=== PATIENT | female | born 1960 | race Caucasian/White ===

== ENCOUNTER 2019-03-04 19:06 | Emergency (ER) | payer OTHER ==
[~2019-03-04] VITALS: Ht 139.7 cm; Wt 57.2 kg
--- OUTSIDE RECORDS SUMMARY | 2019-03-04 19:09 | XMS REPORT | Clinical Summary ---
Author Author [facility] Organization [facility] Address Unknown Phone Unavailable Care Team Providers Care Rover Tender Name Role Phone Silverio Doss MD PCP Allergies Comments Active Allergy Reactions Severity Noted Date Penicillins Rash Low 03/02/2018 Sulfa (Sulfonamide Rash Low 06/08/2018 Antibiotics) Medications End Date Status Medication Sig Dispensed Refills Start Date Active insulin lispro (HumaLOG) Inject under 0 100 unit/mL injection the skin 3 (three) times a day before meals. Sliding scale Active liraglutide (VICTOZA Inject 1.2 mg 0 2-FUENTES SUBQ) under the skin daily. Active carvedilol (COREG) 25 MG Take 25 mg by 0 tablet mouth 2 (two) times a day with meals. Active aspirin (ECOTRIN) 81 MG Take 81 mg by 0 enteric coated tablet mouth daily. Active pantoprazole (PROTONIX) Take 40 mg by 0 40 MG EC tablet mouth daily. Active losartan (COZAAR) 50 MG Take 50 mg by 0 tablet mouth daily. Active atorvastatin (LIPITOR) 40 Take 40 mg by 0 MG tablet mouth daily. Active nitroglycerin (NITROSTAT) Place 0.4 mg 0 0.4 MG SL tablet under the tongue every 5 (five) minutes as needed for chest pain. Active difluprednate (DUREZOL) 1 drop daily. 0 0.05 % drops One drop in rt eye 06/11/2018 Discontinued furosemide (LASIX) 20 mg Take 20 mg by 0 tablet mouth daily. 07/11/2018 ticagrelor (BRILINTA) 90 Take 1 tablet 60 tablet 2 mg tablet (90 mg total) 8 by mouth 2 (two) times a day for 30 days. 06/18/2018 levoFLOXacin (LEVAQUIN) Take 0.5 7 tablet 0 500 MG tablet tablets (250 8 mg total) by mouth daily for 7 days. Active Problems Problem Noted Date Acute chest pain 06/08/2018 Encounters Care Team Description Date Type Specialty Carmelo Acevedo MD Cv left heart cath w lv gram cors [84337 (CPT)] 06/08/2018 Surgery Procedural Cardiology Carmelo Acevedo MD Tang, Hsiao Chiang, MD Acute chest pain; Abnormal nuclear stress test 06/08/2018 [facility] General Internal Medicine - Encounter 06/11/2018 after 03/03/2018 Family History Medical History Relation Name Comments Heart disease Father Relation Name Status Comments Father Social History Date Tobacco Use Types Packs/Day Years Used Quit: 1997 Former Smoker Smokeless Tobacco: Former User Alcohol Use Drinks/Week oz/Week Comments No Sex Assigned at Date Recorded Not on file Industry Job Start Date Occupation Not on file Not on file Not on file Travel End Travel History Travel Start No recent travel history available. Last Filed Vital Signs Time Taken Vital Sign Reading 06/11/2018 7:40 AM CDT Blood Pressure 173/77 06/11/2018 7:40 AM CDT Pulse 73 06/11/2018 7:40 AM CDT Temperature 35.8 C (96.4 F) 06/11/2018 7:40 AM CDT Respiratory Rate 17 06/11/2018 7:40 AM CDT Oxygen Saturation 97% - Inhaled Oxygen - Concentration 06/08/2018 7:33 AM CDT Weight 56.3 kg (124 lb 3.2 oz) 06/08/2018 7:33 AM CDT Height 139.7 cm (4' 7") 06/08/2018 7:33 AM CDT Body Mass Index 28.87 Plan of Treatment Health Maintenance Due Date Last Done Comments CERVICAL CANCER SCREENING 02/04/1981 BREAST CANCER SCREENING 02/04/2010 SHINGLES VACCINES (#1) 02/04/2010 INFLUENZA VACCINE 06/17/2019 COLON CANCER SCREENING 10/02/2024 10/02/2014 Implants Device Identifier Shelf Expiration Date Model / Serial / Lot Implanted Type Area Manufactur er 03/16/2020 [id number] / / [id number] Device Vasclr Clsr Baln Cath 10ml Cardiovasc N/A: N/A CARDINAL Lkng Syr 6fr 7fr Mynxgrip [facility] [id number] Implants Implanted: 06/08/2018 (Quantity not on file) 12/30/2018 [id number] / / [id number] Stent Cornorary Syst Synergy (Mr) Coronary N/A: N/A BSC 2.50mm X 12mm - [id number] Stents INTERVENTI Implanted: 06/08/2018 (Quantity not ONAL on file) CARDIOLOGY 10/14/2018 [id number] / / [id number] Stent Cornorary Syst Synergy (Mr) Coronary N/A: N/A BSC 2.50mm X 12mm - [id number] Stents INTERVENTI Implanted: 06/08/2018 (Quantity not ONAL on file) CARDIOLOGY 02/03/2019 [id number] / / [id number] Stent Cornorary Syst Synergy (Mr) Coronary N/A: N/A BSC 2.50mm X 20mm - [id number] Stents INTERVENTI Implanted: 06/08/2018 (Quantity not ONAL on file) CARDIOLOGY 01/21/2019 [id number] / / [id number] Stent Cornorary Syst Synergy (Mr) Coronary N/A: N/A BSC 2.75mm X 8mm - [id number] Stents INTERVENTI Implanted: 06/08/2018 (Quantity not ONAL on file) CARDIOLOGY Procedures Comments Procedure Name Priority Date/Time Associated Diagnosis POC GLUCOSE Routine 06/11/2018 6:37 AM CDT MAGNESIUM LEVEL Routine 06/11/2018 6:22 AM CDT ZZESTIMATED GFR Routine 06/11/2018 6:22 AM CDT PHOSPHORUS LEVEL Routine 06/11/2018 6:22 AM CDT BASIC METABOLIC PANEL Routine 06/11/2018 6:22 AM CDT HC COMPLETE BLD COUNT Routine 06/11/2018 W/AUTO DIFF 6:22 AM CDT POC GLUCOSE Routine 06/10/2018 8:37 PM CDT POC GLUCOSE Routine 06/10/2018 3:48 PM CDT SODIUM LEVEL, URINE, Routine 06/10/2018 RANDOM 1:16 PM CDT POTASSIUM, URINE, RANDOM Routine 06/10/2018 1:16 PM CDT PROTEIN, URINE, RANDOM Routine 06/10/2018 1:16 PM CDT CREATININE LEVEL, URINE, Routine 06/10/2018 RANDOM 1:16 PM CDT POC GLUCOSE Routine 06/10/2018 11:40 AM CDT US RENAL Routine 06/10/2018 11:16 AM CDT URINALYSIS SCREEN AND Routine 06/10/2018 MICROSCOPY, WITH REFLEX 10:27 AM CDT TO CULTURE GRAM STAIN Routine 06/10/2018 10:27 AM CDT URINE CULTURE Routine 06/10/2018 10:27 AM CDT POC GLUCOSE Routine 06/10/2018 7:44 AM CDT POC GLUCOSE Routine 06/10/2018 5:05 AM CDT ZZESTIMATED GFR Routine 06/10/2018 4:23 AM CDT PHOSPHORUS LEVEL Routine 06/10/2018 4:23 AM CDT BASIC METABOLIC PANEL Routine 06/10/2018 4:23 AM CDT HC COMPLETE BLD COUNT Routine 06/10/2018 W/AUTO DIFF 4:23 AM CDT POC GLUCOSE Routine 06/10/2018 12:59 AM CDT POC GLUCOSE Routine 06/09/2018 8:51 PM CDT POC GLUCOSE Routine 06/09/2018 5:12 PM CDT POC GLUCOSE Routine 06/09/2018 11:34 AM CDT PHOSPHORUS LEVEL Routine 06/09/2018 4:11 AM CDT MAGNESIUM LEVEL Routine 06/09/2018 4:11 AM CDT ZZESTIMATED GFR Routine 06/09/2018 4:11 AM CDT BASIC METABOLIC PANEL Routine 06/09/2018 4:11 AM CDT HC COMPLETE BLD COUNT Routine 06/09/2018 W/AUTO DIFF 4:11 AM CDT HEMOGLOBIN A1C Routine 06/09/2018 4:11 AM CDT POC GLUCOSE Routine 06/09/2018 3:00 AM CDT ECG PRE/POST OP STAT 06/09/2018 12:00 AM CDT ZZESTIMATED GFR STAT 06/08/2018 7:43 PM CDT PHOSPHORUS LEVEL STAT 06/08/2018 7:43 PM CDT MAGNESIUM LEVEL STAT 06/08/2018 7:43 PM CDT BASIC METABOLIC PANEL STAT 06/08/2018 7:43 PM CDT HC COMPLETE BLD COUNT STAT 06/08/2018 W/AUTO DIFF 7:43 PM CDT POC GLUCOSE Routine 06/08/2018 7:42 PM CDT XR ABDOMEN 1 VW PORTABLE Routine 06/08/2018 7:38 PM CDT POC ACT Routine 06/08/2018 1:10 PM CDT ACTIVATED CLOTTING TIME Routine 06/08/2018 1:01 PM CDT CV PCI PERCUTANEOUS Routine 06/08/2018 Acute chest pain CARDIAC ANGIOPLASTY 1:00 PM CDT Abnormal nuclear stress test CV LEFT HEART CATH LV Routine 06/08/2018 Acute chest pain GRAM WITH CORS 1:00 PM CDT Abnormal nuclear stress test POC ACT Routine 06/08/2018 12:41 PM CDT ACTIVATED CLOTTING TIME Routine 06/08/2018 12:37 PM CDT POC ACT Routine 06/08/2018 12:12 PM CDT ACTIVATED CLOTTING TIME Routine 06/08/2018 12:05 PM CDT POC ACT Routine 06/08/2018 11:56 AM CDT POC ACT Routine 06/08/2018 11:51 AM CDT ZZESTIMATED GFR STAT 06/08/2018 8:14 AM CDT BASIC METABOLIC PANEL STAT 06/08/2018 8:14 AM CDT PROTHROMBIN TIME WITH INR STAT 06/08/2018 8:14 AM CDT POC PANEL Routine 06/08/2018 8:10 AM CDT after 03/03/2018 Results * POC glucose (06/11/2018 6:37 AM CDT) Only the most recent of 12 results within the time period is included. POC glucose 132 (H) 65 - 100 mg/dL [facility] Comment: PATHOLOGY AND Meter ID: [id number] GENOMIC MEDICINE Elevator Mechanic: Tim Hodge Performing Organization Address City/State/Zipcode Phone Number [facility] [address] [place] [address] PATHOLOGY AND GENOMIC MEDICINE * Estimated GFR (06/11/2018 6:22 AM CDT) Only the most recent of 5 results within the time period is included. GFR Non Af Amer 22 (A) mL/min/1.73 m2 [facility] PATHOLOGY AND GENOMIC MEDICINE GFR Af Amer 26 (A) mL/min/1.73 m2 [facility] Comment: PATHOLOGY AND Chronic kidney disease: <60 GENOMIC MEDICINE mL/min/1.73m2 Kidney failure: <15 mL/min/1.73m2 The estimated GFR is calculated from the IDMS-traceable Modification of Diet in Renal Disease Equation. The accuracy of the calculation is poor when the creatinine is normal. Calculated values >90 mL/min/1.73m2 are not reported. This equation has not been validated in children (<18 years), women, the elderly (>70 years), or ethnic groups other than Caucasians and Americans. Specimen Plasma specimen Performing Organization Address City/[facility]/Zipcode Phone Number [facility] [address] [place] [address] PATHOLOGY AND GENOMIC MEDICINE * CBC with platelet and differential (06/11/2018 6:22 AM CDT) Only the most recent of 4 results within the time period is included. WBC 8.0 4.2 - 11.0 k/uL [facility] PATHOLOGY AND GENOMIC MEDICINE RBC 3.02 (L) 4.04 - 5.86 m/uL [facility] PATHOLOGY AND GENOMIC MEDICINE HGB 8.7 (L) 11.5 - 15.3 g/dL [facility] PATHOLOGY AND GENOMIC MEDICINE HCT 27.8 (L) 34.0 - 45.0 % [facility] PATHOLOGY AND GENOMIC MEDICINE MCV 92.1 80.0 - 98.0 fL [facility] PATHOLOGY AND GENOMIC MEDICINE MCH 28.8 27.0 - 34.0 pg [facility] PATHOLOGY AND GENOMIC MEDICINE MCHC 31.3 (L) 31.5 - 36.5 g/dL [facility] PATHOLOGY AND GENOMIC MEDICINE RDW - SD 43.4 37.0 - 51.0 fL [facility] PATHOLOGY AND GENOMIC MEDICINE MPV 11.0 (H) 7.4 - 10.4 fL [facility] PATHOLOGY AND GENOMIC MEDICINE Platelet count 121 (L) 150 - 400 k/uL [facility] PATHOLOGY AND GENOMIC MEDICINE Nucleated RBC 0.00 /100 WBC [facility] PATHOLOGY AND GENOMIC MEDICINE Neutrophils 76.5 (H) 36.0 - 66.0 % [facility] PATHOLOGY AND GENOMIC MEDICINE Lymphocytes 13.7 (L) 24.0 - 44.0 % [facility] PATHOLOGY AND GENOMIC MEDICINE Monocytes 6.5 (H) 0.0 - 6.0 % [facility] PATHOLOGY AND GENOMIC MEDICINE Eosinophils 2.3 0.0 - 6.0 % [facility] PATHOLOGY AND GENOMIC MEDICINE Basophils 0.5 0.0 - 1.2 % [facility] PATHOLOGY AND GENOMIC MEDICINE Immature granulocytes 0.5 0.0 - 1.0 % [facility] PATHOLOGY AND GENOMIC MEDICINE Specimen Blood Performing Organization Address City/State/Zipcode Phone Number [place] [address] [place] [address] PATHOLOGY AND GENOMIC MEDICINE * Phosphorus level (06/11/2018 6:22 AM CDT) Only the most recent of 4 results within the time period is included. Phosphorus 4.6 (H) 2.4 - 4.5 mg/dL [facility] PATHOLOGY AND GENOMIC MEDICINE Specimen Plasma specimen Performing Organization Address City/[facility] [place] [address] PATHOLOGY AND [facility] * Magnesium level (06/11/2018 6:22 AM CDT) Only the most recent of 3 results within the time period is included. Magnesium 2.00 1.60 - 2.60 mg/dL [facility] PATHOLOGY AND GENOMIC MEDICINE Specimen Plasma specimen Performing Organization Address [facility] [place] [address] PATHOLOGY AND [facility] * Basic metabolic panel (06/11/2018 6:22 AM CDT) Only the most recent of 5 results within the time period is included. Sodium 137 135 - 150 mEq/L [facility] PATHOLOGY AND GENOMIC MEDICINE Potassium 4.5 3.5 - 5.0 mEq/L [facility] PATHOLOGY AND GENOMIC MEDICINE Chloride 105 98 - 112 mEq/L [facility] PATHOLOGY AND GENOMIC MEDICINE CO2 19 (L) 24 - 31 mmol/L [facility] PATHOLOGY AND GENOMIC MEDICINE Anion gap 13@ANIO 7 - 15 mEq/L [facility] PATHOLOGY AND GENOMIC MEDICINE BUN 36 (H) 7 - 18 mg/dL [facility] PATHOLOGY AND GENOMIC MEDICINE Creatinine 2.30 (H) 0.50 - 0.90 mg/dL [facility] PATHOLOGY AND GENOMIC MEDICINE Glucose 118 (H) 65 - 100 mg/dL [facility] PATHOLOGY AND GENOMIC MEDICINE Calcium 8.8 8.3 - 10.2 mg/dL [facility] PATHOLOGY AND GENOMIC MEDICINE Specimen Plasma specimen Performing Organization Address City/[facility] [place] [address] PATHOLOGY AND GENOMIC MEDICINE * Sodium level, urine, random (06/10/2018 1:16 PM CDT) Sodium, urine, random <30 (A) mEQ/L [facility] PATHOLOGY AND GENOMIC MEDICINE Specimen Urine - Urine, clean catch Performing Organization Address [facility] [place] [address] PATHOLOGY AND GENOMIC MEDICINE * Protein, urine, random (06/10/2018 1:16 PM CDT) Protein, urine random 28 mg/dL [facility] PATHOLOGY AND GENOMIC MEDICINE Specimen Urine - Urine, clean catch Performing Organization Address [facility] Phone Number [facility] [address] [place] [address] PATHOLOGY AND GENOMIC MEDICINE * Potassium, urine, random (06/10/2018 1:16 PM CDT) Potassium, urine, random 46 mEq/L [facility] PATHOLOGY AND GENOMIC MEDICINE Specimen Urine - Urine, clean catch Performing Organization Address [facility] [place] [address] PATHOLOGY AND GENOMIC MEDICINE * Creatinine level, urine, random (06/10/2018 1:16 PM CDT) Creatinine, urine, random 93 mg/dL [facility] PATHOLOGY AND GENOMIC MEDICINE Specimen Urine - Urine, clean catch Performing Organization Address [facility] [place] [address] PATHOLOGY AND GENOMIC MEDICINE * US Renal (06/10/2018 11:16 AM CDT) Narrative Performed At EXAMINATION:US RENAL RADIANT CLINICAL HISTORY:Renal failureacute (kidney injury) COMPARISON:None. FINDINGS: Visually limited abdominal ultrasound to patient body habitus and bowel gas. Normal echogenicity of the right kidney. Right kidney is normal in size measuring 9.1 x 4.9 x 5.1 cm. No mass, calculi or hydronephrosis. Normal echogenicity of the left kidney. Left kidney is normal in size measuring 9.9 x 4.7 x 4.9 cm. No mass, calculi or hydronephrosis. Patient voided prior to examination. The urinary bladder is not visualized. IMPRESSION: 1.No acute abnormalities. I personally reviewed the images and the resident's findings and agree with the final report. [facility]-[id number] Procedure Note Interface, Radiology Results Incoming - 06/10/2018 3:30 PM CDT EXAMINATION: US RENAL CLINICAL HISTORY: Renal failure acute (kidney injury) COMPARISON: None. FINDINGS: Visually limited abdominal ultrasound to patient body habitus and bowel gas. Normal echogenicity of the right kidney. Right kidney is normal in size measuring 9.1 x 4.9 x 5.1 cm. No mass, calculi or hydronephrosis. Normal echogenicity of the left kidney. Left kidney is normal in size measuring 9.9 x 4.7 x 4.9 cm. No mass, calculi or hydronephrosis. Patient voided prior to examination. The urinary bladder is not visualized. IMPRESSION: 1. No acute abnormalities. I personally reviewed the images and the resident's findings and agree with the final report. [facility]-[id number] Performing Organization Address City/State/Zipcode Phone Number [facility] [address] [place] [address] * Urinalysis screen and microscopy, with reflex to culture (06/10/2018 10:27 AM CDT) Specimen site Clean catch [facility] PATHOLOGY AND GENOMIC MEDICINE Color, UA Yellow [facility] PATHOLOGY AND GENOMIC MEDICINE Appearance, UA Clear [facility] PATHOLOGY AND GENOMIC MEDICINE Specific gravity, UA 1.018 1.001 - 1.035 [facility] PATHOLOGY AND GENOMIC MEDICINE pH, UA 5.0 5.0 - 8.5 [facility] PATHOLOGY AND GENOMIC MEDICINE Protein, UA 1+ (A) Negative [facility] PATHOLOGY AND GENOMIC MEDICINE Glucose, UA 1+ (A) Negative [facility] PATHOLOGY AND GENOMIC MEDICINE Ketones, UA Negative Negative [facility] PATHOLOGY AND GENOMIC MEDICINE Bilirubin, UA Negative Negative [facility] PATHOLOGY AND GENOMIC MEDICINE Blood, UA Small (A) Negative [facility] PATHOLOGY AND GENOMIC MEDICINE Nitrite, UA Negative Negative [facility] PATHOLOGY AND GENOMIC MEDICINE Urobilinogen, UA Negative <2.0 [facility] PATHOLOGY AND GENOMIC MEDICINE Leukocyte esterase, UA Trace (A) Negative [facility] PATHOLOGY AND GENOMIC MEDICINE Epithelial cells, UA Few /HPF [facility] PATHOLOGY AND GENOMIC MEDICINE WBC, UA 5 (A) 0 - 5 /HPF [facility] PATHOLOGY AND GENOMIC MEDICINE RBC, UA 2 0 - 5 /HPF [facility] PATHOLOGY AND GENOMIC MEDICINE Bacteria, UA Trace None seen [facility] PATHOLOGY AND GENOMIC MEDICINE Yeast, UA None seen [facility] PATHOLOGY AND GENOMIC MEDICINE Yeast with pseudohyphae, None seen [facility] UA PATHOLOGY AND GENOMIC MEDICINE Specimen Urine Performing Organization Address City/State/Zipcode Phone Number [facility] [address] [place] [address] PATHOLOGY AND GENOMIC MEDICINE * Gram stain (06/10/2018 10:27 AM CDT) Gram stain result No WBC's or organisms seen. [facility] DEPARTMENT OF (A) PATHOLOGY AND Comment: GENOMIC MEDICINE Specimen Information Specimen Source: Urine Specimen Site: Clean catch Specimen Urine Performing Organization Address City/State/Zipcode Phone Number [facility] DEPARTMENT OF [address] [place] [address] PATHOLOGY AND GENOMIC MEDICINE * Urine culture (06/10/2018 10:27 AM CDT) Urine culture isolate Enterobacter cloacae complex [facility] DEPARTMENT OF 10-5 cfu/ml PATHOLOGY AND The performance GENOMIC MEDICINE characteristics of this assay on this isolate were validated by the Microbiology Laboratory at [facility].This source has not been approved by the U.S. Food and Drug Administration.The results are not intended to be used as the sole means for clinical diagnosis or patient management.The Microbiology Laboratory is authorized under the clinical Laboratory Improvement Amendments of 1988 (CLIA-88) to perform high complexity testing. (A) Comment: Specimen Information Specimen Source: Urine Specimen Site: Clean catch Specimen Urine Antibiotic Method Susceptibility Organism Ampicillin MADY >16 mcg/mL: Resistant Enterobacter cloacae complex Amoxicillin/Clavulanate MADY >16/8 mcg/mL: Resistant Enterobacter cloacae complex Amikacin MADY <=4 mcg/mL: Susceptible Enterobacter cloacae complex Aztreonam MADY <=1 mcg/mL: Susceptible Enterobacter cloacae complex Ceftazidime MADY <=0.5 mcg/mL: Susceptible Enterobacter cloacae complex Ciprofloxacin MADY <=0.5 mcg/mL: Susceptible Enterobacter cloacae complex Ceftriaxone MADY <=0.5 mcg/mL: Susceptible Enterobacter cloacae complex Cefuroxime Sodium MADY >16 mcg/mL: Resistant Enterobacter cloacae complex Cefazolin MADY >32 mcg/mL: Resistant Enterobacter cloacae complex Cefepime MADY <=0.5 mcg/mL: Susceptible Enterobacter cloacae complex Nitrofurantoin MADY >64 mcg/mL: Resistant Enterobacter cloacae complex Cefoxitin MADY >16 mcg/mL: Resistant Enterobacter cloacae complex Gentamicin MADY 1 mcg/mL: Susceptible Enterobacter cloacae complex Levofloxacin MADY <=1 mcg/mL: Susceptible Enterobacter cloacae complex Meropenem MADY <=0.125 mcg/mL: Susceptible Enterobacter cloacae complex Tobramycin MADY 1 mcg/mL: Susceptible Enterobacter cloacae complex Ampicillin/Sulbactam MADY 8/4 mcg/mL: Resistant Enterobacter cloacae complex Trimethoprim/Sulfamethoxazole MADY <=0.5/9.5 mcg/mL: Susceptible Enterobacter cloacae complex Tetracycline MADY <=1 mcg/mL: Susceptible Enterobacter cloacae complex Piperacillin/Tazobactam MADY <=2/4 mcg/mL: Susceptible Enterobacter cloacae complex Ertapenem MADY <=0.125 mcg/mL: Susceptible Enterobacter cloacae complex Tigecycline MADY 1 mcg/mL: Susceptible Enterobacter cloacae complex Performing Organization Address City/[facility] Phone Number [facility] DEPARTMENT OF [address] [place] [address] PATHOLOGY AND GENOMIC MEDICINE * Hemoglobin A1c (06/09/2018 4:11 AM CDT) Hemoglobin A1C 7.0 (H) 4.0 - 6.0 % [facility] Comment: PATHOLOGY AND GENOMIC MEDICINE Less than 6% - Goal of therapy for Type II Diabetes Less than 7%-Goal of therapy for Type I Diabetes Less than 8%-Accepta ble control for Type I or Type II Diabetes Greater than 8%-Unacceptabl e control; action indicated. (ADA94) Specimen Blood Performing Organization Address City/[facility]/Zipcode Phone Number [facility] [address] [facility] [place] [address] PATHOLOGY AND GENOMIC MEDICINE * ECG Pre/Post Op (06/09/2018 12:00 AM CDT) Ventricular rate 81 [facility] Atrial rate 81 [facility] PA interval 134 [facility] QRSD interval 76 [facility] QT interval 386 [facility] QTC interval 448 [facility] P axis 1 63 [facility] QRS axis 1 29 [facility] T wave axis 174 [facility] EKG impression Normal sinus rhythm-ST & T [facility] M[facility] wave abnormality, consider inferior ischemia-ST & T wave abnormality, consider anterolateral ischemia-Abnormal ECG-In automated comparison with ECG of 26-SEP-2014 11:24,-No significant change was found- Performing Organization Address [facility] Phone Number [facility] M[facility] [address] [place] [address] * XR Abdomen 1 Vw Portable (06/08/2018 7:38 PM CDT) Narrative Performed At EXAM:XR ABDOMEN 1 VW PORTABLE RADIANT CLINICAL HISTORY:abdominal distension r o constipation ileus COMPARISON:Chest radiograph, 03/02/2018 IMPRESSION: The bowel gas pattern is nondilated, nonobstructive. Small to moderate amount of scattered colonic stool is noted. No pathologic masses or calcifications are identified. The lung bases are free of acute disease. No acute osseous abnormality identified. [facility]-[id number] Procedure Note Hm Interface, Radiology Results Incoming - 06/08/2018 10:09 PM CDT EXAM: XR ABDOMEN 1 VW PORTABLE CLINICAL HISTORY: abdominal distension r o constipation ileus COMPARISON: Chest radiograph, 03/02/2018 IMPRESSION: The bowel gas pattern is nondilated, nonobstructive. Small to moderate amount of scattered colonic stool is noted. No pathologic masses or calcifications are identified. The lung bases are free of acute disease. No acute osseous abnormality identified. [facility]-[id number] Performing Organization Address [facility] Phone Number [facility] [address] [place] [address] * POC ACT (06/08/2018 1:10 PM CDT) Only the most recent of 5 results within the time period is included. Activated clotting time, 219 seconds POC Specimen Blood * Activated clotting time (06/08/2018 1:01 PM CDT) Only the most recent of 3 results within the time period is included. Activated clotting time 219.0 (H) 74.0 - 125.0 sec [facility] Comment: PATHOLOGY AND Meter ID: [id number] GENOMIC MEDICINE Elevator Mechanic: Jigar Jaime Performing Organization Address [facility] Phone Number [facility] [place] [address] PATHOLOGY AND GENOMIC MEDICINE * Cv cardiac cath tech procedure (06/08/2018 1:00 PM CDT) Narrative Performed At Performing Organization Address City/State/Zipcode Phone Number [facility] [address] [place] [address] * Prothrombin time with INR (06/08/2018 8:14 AM CDT) Prothrombin time 12.5 12.0 - 15.0 sec [facility] PATHOLOGY AND [employer] MEDICINE INR 0.92 0.92 - 1.12 [facility] OF Comment: PATHOLOGY AND For patients on anticoagulant GENOMIC MEDICINE therapy, reference ranges below: Indication: INR Value Treatment of Venous Thrombosis, 2.0-3.0 pulmonary emboli, or prophylaxis of a venous thrombosis, or systemic emboli. High dose, high risk patients 3.0-4.5 with mechanical valves. NOTE:INR values over 3.0 are sometimes associated with gastrointestinal hemorrhage, especially values over 4.0. Specimen Blood Performing Organization Address [facility] Phone Number [place] [address] [place] [address] PATHOLOGY AND GENOMIC MEDICINE * POC panel (06/08/2018 8:10 AM CDT) POC sodium 141 135 - 148 mmol/L [facility] OF PATHOLOGY AND GENOMIC MEDICINE POC potassium 4.8 3.5 - 5.0 mmol/L [facility] OF PATHOLOGY AND GENOMIC MEDICINE POC chloride 103 99 - 109 mmol/L [facility] OF PATHOLOGY AND GENOMIC MEDICINE POC CO2 30 24 - 31 mmol/L [facility] OF PATHOLOGY AND GENOMIC MEDICINE POC glucose 213 (H) 65 - 99 mg/dL [facility] OF PATHOLOGY AND GENOMIC MEDICINE POC BUN 35 (H) 8 - 24 mg/dL [facility] OF PATHOLOGY AND GENOMIC MEDICINE POC creatinine 1.4 (H) 0.5 - 0.9 mg/dl [facility] OF PATHOLOGY AND GENOMIC MEDICINE POC hemoglobin 12.9 12.0 - 16.0 g/dL [facility] Comment: PATHOLOGY AND Meter ID: [id number] [employer] MEDICINE Elevator Mechanic: Shilpa Manley POC hematocrit 38 37 - 47 % [facility] OF PATHOLOGY AND GENOMIC MEDICINE POC anion gap 14 8 - 20 mmol/L [facility] OF PATHOLOGY AND GENOMIC MEDICINE Specimen Blood Performing Organization Address City/[facility]/Zipcode Phone Number [place] [phone] [place] [address] PATHOLOGY AND GENOMIC MEDICINE after 03/03/2018 Insurance Payer Benefit Subscriber ID Type Phone Address Plan / Group [facility] MEDIC[facility] [place] xxxxxxxxx [facility] [place] MEDICAID [facility] xxxxxxxxx [facility] [place] Advance Directives Patient has advance care planning documents on file. For more information, le pulido contact: Talon Priest [address] [place] [address]
--- NOTE | 2019-03-04 19:54 | NUR ---
bedside glucose check-76
[2019-03-04] MEDS ORDERED: DEXTROSE 5%/0.45% SOD CHL 1,000 ML IV ONE (20:00)
[2019-03-04 20:38] LABS: HEMOGLOBIN 13.4 g/dL (12.0-16.0); RED BLOOD COUNT 4.51 x10e6/uL (3.6-5.1)
[2019-03-04 20:39] LABS: BASOPHILS % 0.1 % (0.0-1.0); EOSINOPHILS % 0.3 % (0.0-6.0); HEMATOCRIT 41.3 % (34.2-44.1); LYMPHOCYTES % 2.2 % (18.0-39.1); MEAN CORPUSCULAR HEMOGLOBIN 29.7 pg (28-32); MEAN CORPUSCULAR HGB CONC 32.4 g/dL (31-35); MEAN CORPUSCULAR VOLUME 91.6 fL (81-99); MONOCYTES % 0.8 % (4.4-11.3); NEUTROPHILS % 7.5 % (38.7-80.0); PLATELET COUNT 189 x10e3/uL (140-360); RED CELL DISTRIBUTION WIDTH 12.8 % (11.7-14.4)
[2019-03-04] MEDS ORDERED: DEXTROSE 50% SYRINGE 50 ML IV STA (20:42)
[2019-03-04] MEDS ORDERED: DEXTROSE 10% 1,000 ML IV ONE (20:45)
--- NOTE | 2019-03-04 20:45 | NUR ---
bg bedside check-66, aware, recieved new orders
[2019-03-04 20:56] LABS: ALBUMIN 3.4 g/dL (3.5-5.0); ALBUMIN/GLOBULIN RATIO 0.9 (0.8-2.0); ANION GAP 17.8 mmol/L (8-16); CALCIUM 9.7 mg/dL (8.4-10.2); CREATININE, SERUM 1.75 mg/dL (0.57-1.11); POTASSIUM 3.8 mmol/L (3.5-5.1)
--- NOTE | 2019-03-04 21:39 | NUR ---
BEDSIDE GLUCOSE 271- MD AWARE- REDUCED DEXTROSE 10% TO 50CC/HR PER MD ORDERS
[2019-03-04 22:06] LABS: CLARITY,URINE CLEAR (CLEAR); COLOR,URINE YELLOW (YELLOW)
[2019-03-04 22:07] LABS: BILIRUBIN,URINE NEGATIVE (NEGATIVE); KETONES,URINE NEGATIVE (NEGATIVE); LEUKOCYTE ESTERASE ,URINE NEGATIVE (NEGATIVE); NITRITE,URINE NEGATIVE (NEGATIVE); PROTEIN,URINE DIPSTICK 1+ (NEGATIVE); URINE UROBILINOGEN 0.2 mg/dL (0.2 - 1)
[2019-03-04 22:18] LABS: BACTERIA,URINE FEW /HPF; EPITHELIAL CELLS,URINE FEW /LPF; RBC,URINE 0-5 /HPF (0-5); WBC,URINE (MAN) 0-5 /HPF (0-5)
--- NOTE | 2019-03-04 22:53 | NUR ---
BEDSIDE GLUCOSE 205, MD AT BEDSIDE, ORDERED TO STOP DEXTROSE 10%.
--- NOTE | 2019-03-05 00:11 | NUR ---
BEDSIDE GLUCOSE CHECK-191, MD AWARE OF BP, DOES NOT WANT TO INTERVENE.
[2019-03-05 00:35] VITALS: BP 182/84
== END 2019-03-05 00:55 | disposition home or self-care (01) ==
LOC: ER 19:06
DX: R41.82 Altered mental status, unspecified (principal); R41.0 Disorientation, unspecified; E10.649 Type 1 diabetes mellitus with hypoglycemia without coma
CPT/HCPCS: 36415; 80053; 81001; 82948; 85025; 99284; J7799

== ENCOUNTER 2019-04-13 16:27 | Emergency (ER) | payer MEDICARE, OTHER ==
[~2019-04-13] VITALS: Ht 139.7 cm; Wt 57.2 kg
--- OUTSIDE RECORDS SUMMARY | 2019-04-13 16:30 | XMS REPORT | Clinical Summary ---
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 Name Role Phone Silveroi Doss MD PCP Allergies Comments Active Allergy [...] left heart cath w lv gram cors [27880 (CPT)] 06/08/2018 Surgery Procedural Cardiology Carmelo Acevedo MD Tang, Hsiao Chiang, MD Acute chest pain; Abnormal nuclear stress test 06/08/2018 [facility] General Internal Medicine - Encounter 06/11/2018 after 04/12/2018 Family History Medical History Relation Name Comments [...] Health Maintenance Due Date Last Done Comments BREAST CANCER SCREENING 02/04/2010 SHINGLES VACCINES (#1) 02/04/2010 INFLUENZA VACCINE 06/17/2019 COLON CANCER SCREENING 10/02/2024 10/02/2014 Implants Device Identifier Shelf Expiration Date Model / Serial / Lot Implanted Type Area Manufactur er 03/16/2020 [id number] / / [id number] Device Vasclr Clsr Baln Cath 10ml Cardiovasc N/A: N/A CARDINAL Lkng Syr 6fr 7fr Mynxgrip [facility] [id number] Implants Implanted: 06/08/2018 (Quantity not on file) 12/30/2018 [id number] / / [id number] Stent Cornorary Syst Synergy (Mr) Coronary N/A: N/A BSC 2.50mm X 12mm - [id number] Stents INTERVENTI Implanted: 06/08/2018 (Quantity not ONAL on file) CARDIOLOGY 10/14/2018 [id number] / / [id number] Stent Cornorary Syst Synergy (Mr) Coronary N/A: N/A BSC 2.50mm X 12mm - [id number] Stents INTERVENTI Implanted: 06/08/2018 (Quantity not ONAL on file) CARDIOLOGY 02/03/2019 [id number] / / [id number] Stent Cornorary Syst Synergy (Mr) Coronary N/A: N/A BSC 2.50mm X 20mm - [id number] Stents INTERVENTI Implanted: 06/08/2018 (Quantity not ONAL on file) CARDIOLOGY 01/21/2019 [id number] / / [id number] Stent Cornorary Syst Synergy (Mr) Coronary N/A: N/A BSC 2.75mm X 8mm - [id number] Stents INTERVENTI Implanted: 06/08/2018 (Quantity not ONAL [...] PANEL Routine 06/08/2018 8:10 AM CDT after 04/12/2018 Results * POC glucose (06/11/2018 6:37 AM CDT) Only the most recent of 12 results within the time period is included. [facility] POC glucose 132 (H) 65 - 100 mg/dL [facility] DEPARTMENT Comment: OF PATHOLOGY Meter ID: [id number] AND GENOMIC Outside Collector: Tim Hodge MEDICINE Specimen Performing Organization Address City/State/Zipcode Phone Number [facility] DEPARTMENT OF [address] [place] [address] PATHOLOGY AND GENOMIC MEDICINE * Estimated GFR (06/11/2018 6:22 AM CDT) Only the most recent of 5 results within the time period is included. [facility] GFR Non Af Amer 22 (A) mL/min/1.73 m2 [facility] DEPARTMENT OF PATHOLOGY AND GENOMIC MEDICINE GFR Af Amer 26 (A) mL/min/1.73 m2 [facility] DEPARTMENT Comment: OF PATHOLOGY Chronic kidney disease: <60 AND GENOMIC mL/min/1.73m2 MEDICINE Kidney failure: <15 mL/min/1.73m2 The estimated GFR [...] Americans. Specimen Plasma specimen Performing Organization Address City/State/Zipcode Phone Number [facility] [address] [place] [address] PATHOLOGY AND GENOMIC MEDICINE * CBC with platelet and differential (06/11/2018 6:22 AM CDT) Only the most recent of 4 results within the time period is included. WBC 8.0 4.2 - 11.0 k/uL [facility] DEPARTMENT OF PATHOLOGY AND GENOMIC MEDICINE RBC 3.02 (L) 4.04 - 5.86 m/uL [facility] DEPARTMENT OF PATHOLOGY AND GENOMIC MEDICINE HGB 8.7 (L) 11.5 - 15.3 g/dL [facility] DEPARTMENT OF PATHOLOGY AND GENOMIC MEDICINE HCT 27.8 (L) 34.0 - 45.0 % [facility] DEPARTMENT OF PATHOLOGY AND GENOMIC MEDICINE MCV 92.1 80.0 - 98.0 fL [facility] DEPARTMENT OF PATHOLOGY AND GENOMIC MEDICINE MCH 28.8 27.0 - 34.0 pg [facility] DEPARTMENT OF PATHOLOGY AND GENOMIC MEDICINE MCHC 31.3 (L) 31.5 - 36.5 g/dL [facility] DEPARTMENT OF PATHOLOGY AND GENOMIC MEDICINE RDW - SD 43.4 37.0 - 51.0 fL [facility] DEPARTMENT OF PATHOLOGY AND GENOMIC MEDICINE MPV 11.0 (H) 7.4 - 10.4 fL [facility] DEPARTMENT OF PATHOLOGY AND GENOMIC MEDICINE Platelet count 121 (L) 150 - 400 k/uL [facility] DEPARTMENT OF PATHOLOGY AND GENOMIC MEDICINE Nucleated RBC 0.00 /100 WBC [facility] DEPARTMENT OF PATHOLOGY AND GENOMIC MEDICINE Neutrophils 76.5 (H) 36.0 - 66.0 % [facility] DEPARTMENT OF PATHOLOGY AND GENOMIC MEDICINE Lymphocytes 13.7 (L) 24.0 - 44.0 % [facility] DEPARTMENT OF PATHOLOGY AND GENOMIC MEDICINE Monocytes 6.5 (H) 0.0 - 6.0 % [facility] DEPARTMENT OF PATHOLOGY AND GENOMIC MEDICINE Eosinophils 2.3 0.0 - 6.0 % [facility] DEPARTMENT OF PATHOLOGY AND GENOMIC MEDICINE Basophils 0.5 0.0 - 1.2 % [facility] DEPARTMENT OF PATHOLOGY AND GENOMIC MEDICINE Immature 0.5 0.0 - 1.0 % [facility] granulocytes OF PATHOLOGY AND GENOMIC MEDICINE Specimen Blood Performing Organization Address City/State/Zipcode Phone Number [place] [address] [place] [address] PATHOLOGY AND GENOMIC MEDICINE * Phosphorus level (06/11/2018 6:22 AM CDT) Only the most recent of 4 results within the time period is included. Phosphorus 4.6 (H) 2.4 - 4.5 mg/dL [facility] DEPARTMENT OF PATHOLOGY AND GENOMIC MEDICINE Specimen Plasma specimen Performing Organization Address City/[facility] [place] [address] PATHOLOGY AND [facility] * Magnesium level (06/11/2018 6:22 AM CDT) Only the most recent of 3 results within the time period is included. Magnesium 2.00 1.60 - 2.60 mg/dL [facility] DEPARTMENT OF PATHOLOGY AND GENOMIC MEDICINE Specimen Plasma specimen Performing Organization Address [facility] [place] [address] PATHOLOGY AND [facility] * Basic metabolic panel (06/11/2018 6:22 AM CDT) Only the most recent of 5 results within the time period is included. Sodium 137 135 - 150 mEq/L [facility] DEPARTMENT OF PATHOLOGY AND GENOMIC MEDICINE Potassium 4.5 3.5 - 5.0 mEq/L [facility] DEPARTMENT OF PATHOLOGY AND GENOMIC MEDICINE Chloride 105 98 - 112 mEq/L [facility] DEPARTMENT OF PATHOLOGY AND GENOMIC MEDICINE CO2 19 (L) 24 - 31 mmol/L [facility] DEPARTMENT OF PATHOLOGY AND GENOMIC MEDICINE Anion gap 13@ANIO 7 - 15 mEq/L [facility] DEPARTMENT OF PATHOLOGY AND GENOMIC MEDICINE BUN 36 (H) 7 - 18 mg/dL [facility] DEPARTMENT OF PATHOLOGY AND GENOMIC MEDICINE Creatinine 2.30 (H) 0.50 - 0.90 mg/dL [facility] DEPARTMENT OF PATHOLOGY AND GENOMIC MEDICINE Glucose 118 (H) 65 - 100 mg/dL [facility] DEPARTMENT OF PATHOLOGY AND GENOMIC MEDICINE Calcium 8.8 8.3 - 10.2 mg/dL [facility] DEPARTMENT OF PATHOLOGY AND GENOMIC MEDICINE Specimen Plasma specimen Performing Organization Address [facility] [place] [address] PATHOLOGY AND GENOMIC MEDICINE * Sodium level, urine, random (06/10/2018 1:16 PM CDT) Sodium, urine, <30 (A) mEQ/L [facility] random OF PATHOLOGY AND GENOMIC MEDICINE Specimen Urine - Urine, clean catch Performing Organization Address [facility] Phone Number [facility] [address] [place] [address] PATHOLOGY AND GENOMIC MEDICINE * Protein, urine, random (06/10/2018 1:16 PM CDT) Protein, urine 28 mg/dL [facility] random OF PATHOLOGY AND GENOMIC MEDICINE Specimen Urine - Urine, clean catch Performing Organization Address [facility] Phone Number [facility] [address] [place] [address] PATHOLOGY AND GENOMIC MEDICINE * Potassium, urine, random (06/10/2018 1:16 PM CDT) Potassium, 46 mEq/L [facility] DEPARTMENT urine, random OF PATHOLOGY AND GENOMIC MEDICINE Specimen Urine - Urine, clean catch Performing Organization Address [facility] [place] [address] PATHOLOGY AND GENOMIC MEDICINE * Creatinine level, urine, random (06/10/2018 1:16 PM CDT) Creatinine, 93 mg/dL [facility] DEPARTMENT urine, random OF PATHOLOGY AND GENOMIC MEDICINE Specimen Urine - Urine, clean catch Performing Organization Address [facility] [place] [address] PATHOLOGY AND GENOMIC MEDICINE * US Renal (06/10/2018 11:16 AM CDT) Specimen Narrative Performed At EXAMINATION: RENAL RADIANT CLINICAL HISTORY:Renal failureacute (kidney injury) [...] findings and agree with the final report. [facility]-[id number] Procedure Note Hm Interface, Radiology Results Incoming - 06/10/2018 3:30 [...] findings and agree with the final report. [facility]-[id number] Performing Organization Address City/State/Zipcode Phone Number [facility] [address] [place] [address] * Urinalysis screen and microscopy, with reflex to culture (06/10/2018 10:27 AM CDT) Specimen site Clean catch [facility] DEPARTMENT OF PATHOLOGY AND GENOMIC MEDICINE Color, UA Yellow [facility] DEPARTMENT OF PATHOLOGY AND GENOMIC MEDICINE Appearance, UA Clear [facility] DEPARTMENT OF PATHOLOGY AND GENOMIC MEDICINE Specific 1.018 1.001 - 1.035 [facility] DEPARTMENT gravity, UA OF PATHOLOGY AND GENOMIC MEDICINE pH, UA 5.0 5.0 - 8.5 [facility] DEPARTMENT OF PATHOLOGY AND GENOMIC MEDICINE Protein, UA 1+ (A) Negative [facility] DEPARTMENT OF PATHOLOGY AND GENOMIC MEDICINE Glucose, UA 1+ (A) Negative [facility] DEPARTMENT OF PATHOLOGY AND GENOMIC MEDICINE Ketones, UA Negative Negative [facility] DEPARTMENT OF PATHOLOGY AND GENOMIC MEDICINE Bilirubin, UA Negative Negative [facility] DEPARTMENT OF PATHOLOGY AND GENOMIC MEDICINE Blood, UA Small (A) Negative [facility] DEPARTMENT OF PATHOLOGY AND GENOMIC MEDICINE Nitrite, UA Negative Negative [facility] DEPARTMENT OF PATHOLOGY AND GENOMIC MEDICINE Urobilinogen, Negative <2.0 [facility] DEPARTMENT UA OF PATHOLOGY AND GENOMIC MEDICINE Leukocyte Trace (A) Negative [facility] DEPARTMENT esterase, UA OF PATHOLOGY AND GENOMIC MEDICINE Epithelial Few /HPF [facility] DEPARTMENT cells, UA OF PATHOLOGY AND GENOMIC MEDICINE WBC, UA 5 (A) 0 - 5 /HPF [facility] DEPARTMENT OF PATHOLOGY AND GENOMIC MEDICINE RBC, UA 2 0 - 5 /HPF [facility] DEPARTMENT OF PATHOLOGY AND GENOMIC MEDICINE Bacteria, UA Trace None seen [facility] DEPARTMENT OF PATHOLOGY AND GENOMIC MEDICINE Yeast, UA None seen [facility] DEPARTMENT OF PATHOLOGY AND GENOMIC MEDICINE Yeast with None seen [facility] DEPARTMENT pseudohyphae, OF PATHOLOGY UA AND GENOMIC MEDICINE Specimen Urine Performing Organization Address City/State/Zipcode Phone Number [facility] DEPARTMENT OF [address] [place] [address] PATHOLOGY AND GENOMIC MEDICINE * Gram stain (06/10/2018 10:27 AM CDT) Gram stain No WBC's or organisms seen. [facility] DEPARTMENT result (A) OF PATHOLOGY Comment: AND GENOMIC Specimen Information MEDICINE Specimen Source: Urine Specimen Site: Clean catch Specimen Urine Performing Organization Address City/State/Zipcode Phone Number [facility] DEPARTMENT OF [address] [place] [address] PATHOLOGY AND GENOMIC MEDICINE * Urine culture (06/10/2018 10:27 AM CDT) Urine culture Enterobacter cloacae complex [facility] DEPARTMENT isolate 10-5 cfu/ml OF PATHOLOGY The performance AND GENOMIC characteristics of this assay MEDICINE on this isolate were validated by the Microbiology Laboratory at [facility].This source has not been approved by [...] Susceptible Enterobacter cloacae complex Performing Organization Address City/[facility]/Zipcode Phone Number [facility] DEPARTMENT OF [address] [place] [address] PATHOLOGY AND GENOMIC MEDICINE * Hemoglobin A1c (06/09/2018 4:11 AM CDT) [facility] Hemoglobin A1C 7.0 (H) 4.0 - 6.0 % [facility] DEPARTMENT Comment: OF PATHOLOGY AND GENOMIC MEDICINE Less than 6% - Goal of therapy for Type II Diabetes Less than 7%-Goal of therapy for Type I Diabetes Less than 8%-Accepta ble control for Type I or Type II Diabetes Greater than 8%-Unacceptabl e control; action indicated. ([id number]) Specimen Blood Performing Organization Address City/State/Zipcode Phone Number [facility] DEPARTMENT [address] [place] [address] PATHOLOGY AND GENOMIC MEDICINE * ECG Pre/Post Op (06/09/2018 12:00 AM CDT) Ventricular 81 [facility]USE rate Atrial rate 81 [facility] WA interval 134 [facility] QRSD interval 76 [facility] QT interval 386 [facility] QTC interval 448 [facility] P axis 1 63 [facility] MUSE QRS axis 1 29 [facility] MUSE T wave axis 174 [facility] MUSE EKG impression Normal sinus rhythm-ST & T [facility] MUSE wave abnormality, consider inferior ischemia-ST & T wave abnormality, consider anterolateral ischemia-Abnormal ECG-In automated comparison with ECG of 26-SEP-2014 11:24,-No significant change was found- Specimen Performing Organization Address [facility] Phone Number [facility] MUSE [address] [place] [address] * XR Abdomen 1 Vw Portable (06/08/2018 7:38 PM CDT) Specimen Narrative Performed At EXAM:XR ABDOMEN 1 VW PORTABLE RADIANT CLINICAL HISTORY:abdominal distension r o constipation ileus COMPARISON:Chest radiograph, 03/02/2018 IMPRESSION: The bowel gas pattern is nondilated, nonobstructive. Small to moderate amount of scattered colonic stool is noted. No pathologic masses or calcifications are identified. The lung bases are free of acute disease. No acute osseous abnormality identified. [facility]-[id number] Procedure Note Interface, Radiology Results Incoming - 06/08/2018 10:09 [...] acute disease. No acute osseous abnormality identified. [facility]-[id number] Performing Organization Address [facility] Phone Number [facility] [address] [place] [address] * POC ACT (06/08/2018 1:10 PM CDT) Only the most recent of 5 results within the time period is included. Activated 219 seconds clotting time, POC Specimen Blood * Activated clotting time (06/08/2018 1:01 PM CDT) Only the most recent of 3 results within the time period is included. Activated 219.0 (H) 74.0 - 125.0 sec [facility] DEPARTMENT clotting time Comment: OF PATHOLOGY Meter ID: [id number] AND GENOMIC Outside Collector: Jigar Michelleon MEDICINE Specimen Performing Organization Address City/State/Zipcode Phone Number [facility] DEPARTMENT OF [address] [place] [address] PATHOLOGY AND GENOMIC MEDICINE * Cv labor economist procedure (06/08/2018 1:00 PM CDT) Specimen Narrative Performed At Performing Organization Address City/State/Zipcode Phone Number [facility] [address] [place] [address] * Prothrombin time with INR (06/08/2018 8:14 AM CDT) [facility] Prothrombin 12.5 12.0 - 15.0 sec [facility] DEPARTMENT time OF PATHOLOGY AND GENOMIC MEDICINE INR 0.92 0.92 - 1.12 [facility] DEPARTMENT Comment: OF PATHOLOGY For patients on anticoagulant AND GENOMIC therapy, reference ranges MEDICINE below: Indication: INR Value Treatment of Venous Thrombosis, 2.0-3.0 pulmonary emboli, or prophylaxis of a venous thrombosis, or systemic emboli. High dose, high risk patients 3.0-4.5 with mechanical valves. NOTE:INR values over 3.0 are sometimes associated with gastrointestinal hemorrhage, especially values over 4.0. Specimen Blood Performing Organization Address City/State/Zipcode Phone Number [facility] DEPARTMENT OF [address] [place] [address] PATHOLOGY AND GENOMIC MEDICINE * POC panel (06/08/2018 8:10 AM CDT) [facility] POC sodium 141 135 - 148 mmol/L [facility] DEPARTMENT OF PATHOLOGY AND GENOMIC MEDICINE POC potassium 4.8 3.5 - 5.0 mmol/L [facility] DEPARTMENT OF PATHOLOGY AND GENOMIC MEDICINE POC chloride 103 99 - 109 mmol/L [facility] DEPARTMENT OF PATHOLOGY AND GENOMIC MEDICINE POC CO2 30 24 - 31 mmol/L [facility] DEPARTMENT OF PATHOLOGY AND GENOMIC MEDICINE POC glucose 213 (H) 65 - 99 mg/dL [facility] DEPARTMENT OF PATHOLOGY AND GENOMIC MEDICINE POC BUN 35 (H) 8 - 24 mg/dL [facility] DEPARTMENT OF PATHOLOGY AND GENOMIC MEDICINE POC creatinine 1.4 (H) 0.5 - 0.9 mg/dl [facility] DEPARTMENT OF PATHOLOGY AND GENOMIC MEDICINE POC hemoglobin 12.9 12.0 - 16.0 g/dL [facility] DEPARTMENT Comment: OF PATHOLOGY Meter ID: [id number] AND GENOMIC Outside Collector: Shilpa Manley [facility] POC hematocrit 38 37 - 47 % [facility] DEPARTMENT OF PATHOLOGY AND GENOMIC MEDICINE POC anion gap 14 8 - 20 mmol/L [facility] DEPARTMENT OF PATHOLOGY AND GENOMIC MEDICINE Specimen Blood Performing Organization Address City/State/Zipcode Phone Number [facility] DEPARTMENT OF [address] [place] [address] PATHOLOGY AND GENOMIC MEDICINE after 04/12/2018 Insurance Type Payer Benefit Subscriber ID Effective Phone Address Plan / Dates Group HMO UHC MEDICARE UNITED xxxxxxxxx 2018-P HEALTHCARE resent [facility] MEDICAID [facility] xxxxxxxxx 2018-P [facility] resent [facility] Advance Directives Patient has advance care planning documents on file. For more information, le pulido contact: Talon Priest [address] [facility] [place] [address]
[2019-04-13 18:15] LABS: BASOPHILS % 0.3 % (0.0-1.0); EOSINOPHILS # (AUTO) 0.2 (0.0-0.4); EOSINOPHILS % 2.1 % (0.0-6.0); HEMATOCRIT 37.3 % (34.2-44.1); HEMOGLOBIN 12.8 g/dL (12.0-16.0); LYMPHOCYTES # (AUTO) 1.4 (1.0-3.2); LYMPHOCYTES % 17.6 % (18.0-39.1); MEAN CORPUSCULAR HEMOGLOBIN 29.8 pg (28-32); MEAN CORPUSCULAR HGB CONC 34.3 g/dL (31-35); MEAN CORPUSCULAR VOLUME 86.7 fL (81-99); MONOCYTES # (AUTO) 0.5 (0.2-0.8); MONOCYTES % 6.3 % (4.4-11.3); NEUTROPHILS # (AUTO) 5.8 (2.1-6.9); NEUTROPHILS % 73.1 % (38.7-80.0); PLATELET COUNT 151 x10e3/uL (140-360); RED CELL DISTRIBUTION WIDTH 12.6 % (11.7-14.4)
[2019-04-13 18:16] LABS: BILIRUBIN,URINE NEGATIVE (NEGATIVE); CLARITY,URINE CLEAR (CLEAR); COLOR,URINE YELLOW (YELLOW); KETONES,URINE NEGATIVE (NEGATIVE); LEUKOCYTE ESTERASE ,URINE NEGATIVE (NEGATIVE); NITRITE,URINE NEGATIVE (NEGATIVE); PROTEIN,URINE DIPSTICK 1+ (NEGATIVE); URINE UROBILINOGEN 0.2 mg/dL (0.2 - 1)
--- NOTE | 2019-04-13 18:20 | Diagnostic Imaging Report ---
EXAMINATION: CHEST SINGLE (PORTABLE) INDICATION: ^ams low bs ^[id number] ^[id number] COMPARISON: None FINDINGS: AP view TUBES and LINES: None. LUNGS/PLEURA: There is cephalization of the vessels which is likely a chronic finding. No interstitial edema is seen. No definite pleural effusion is seen, although the left costophrenic sulcus is somewhat obscured. HEART AND MEDIASTINUM: Enlarged cardiac silhouette. Median sternotomy wires. BONES AND SOFT TISSUES: No acute osseous lesion. Soft tissues are unremarkable. UPPER ABDOMEN: No free air under the diaphragm. IMPRESSION: Enlarged cardiac silhouette, this may be a chronic finding however no comparisons are available at time of dictation. Signed by: Jimmie García MD on 04/13/2019 6:17 PM
[2019-04-13 18:27] LABS: EPITHELIAL CELLS,URINE RARE /LPF; RBC,URINE 0-5 /HPF (0-5)
[2019-04-13 18:30] LABS: ALBUMIN 3.5 g/dL (3.5-5.0); ALBUMIN/GLOBULIN RATIO 1.3 (0.8-2.0); ANION GAP 14.1 mmol/L (8-16); CALCIUM 8.8 mg/dL (8.4-10.2); CREATININE, SERUM 1.34 mg/dL (0.57-1.11); POTASSIUM 3.1 mmol/L (3.5-5.1)
[2019-04-13] MEDS ORDERED: POTASSIUM CHLORIDE 20 MEQ TAB CR PO NR (18:45)
== END 2019-04-13 20:11 | disposition home or self-care (01) ==
LOC: ER 16:27
DX: E11.649 Type 2 diabetes mellitus with hypoglycemia without coma (principal); E87.1 Hypo-osmolality and hyponatremia; E87.6 Hypokalemia; I25.10 Atherosclerotic heart disease of native coronary artery without angina pectoris; Z95.5 Presence of coronary angioplasty implant and graft; E11.22 Type 2 diabetes mellitus with diabetic chronic kidney disease; I12.9 Hypertensive chronic kidney disease with stage 1 through stage 4 chronic kidney disease, or unspecified chronic kidney disease; N18.9 Chronic kidney disease, unspecified; Z86.73 Personal history of transient ischemic attack (TIA), and cerebral infarction without residual deficits; H54.7 Unspecified visual loss
CPT/HCPCS: 36415; 71045; 80053; 81001; 82948; 85025; 99284

== ENCOUNTER 2021-03-23 21:41 | Inpatient (IN) | payer MEDICARE, OTHER ==
[~2021-03-23] VITALS: Ht 139.7 cm; Wt 57.2 kg
[2021-03-23] MEDS ORDERED: SODIUM CHLORIDE 0.9% 1000ML 1,000 ML IV STA (22:07)
[2021-03-23] MEDS ORDERED: ASPIRIN 81 MG CHEW TAB PO ONE (22:15)
[2021-03-23] MEDS ORDERED: DEXTROSE 5% 1,000 ML IV ONE (22:15)
[2021-03-23] MEDS ORDERED: DEXTROSE 50% SYRINGE 50 ML IV ONE (22:17)
[2021-03-23 22:27] LABS: BASOPHILS % 0.5 % (0.0-1.0); EOSINOPHILS # (AUTO) 0.5 (0.0-0.4); EOSINOPHILS % 6.4 % (0.0-6.0); HEMATOCRIT 24.3 % (34.2-44.1); HEMOGLOBIN 7.3 g/dL (12.0-16.0); LYMPHOCYTES # (AUTO) 1.8 (1.0-3.2); LYMPHOCYTES % 23.9 % (18.0-39.1); MEAN CORPUSCULAR HEMOGLOBIN 28.1 pg (28-32); MEAN CORPUSCULAR VOLUME 93.5 fL (81-99); MONOCYTES # (AUTO) 0.7 (0.2-0.8); MONOCYTES % 9.1 % (4.4-11.3); NEUTROPHILS # (AUTO) 4.5 (2.1-6.9); NEUTROPHILS % 59.7 % (38.7-80.0); PLATELET COUNT 167 x10e3/uL (140-360); RED CELL DISTRIBUTION WIDTH 14.6 % (11.7-14.4)
[2021-03-23 22:41] LABS: ALBUMIN 2.7 g/dL (3.5-5.0); ALBUMIN/GLOBULIN RATIO 1.1 (0.8-2.0); ALKALINE PHOSPHATASE 55 IU/L (40-150); ANION GAP 14.6 mmol/L (8-16); BLOOD UREA NITROGEN 63 mg/dL (7-26); BUN/CREATININE RATIO 18 (6-25); CALCIUM 7.4 mg/dL (8.4-10.2); CARBON DIOXIDE 21 mmol/L (22-29); CHLORIDE 110 mmol/L (98-107); CREATINE KINASE 43 IU/L (29-168); CREATININE, SERUM 3.53 mg/dL (0.57-1.11); EST GLOMERULAR FILTRATION RATE 13 ML/MIN (60-); POTASSIUM 4.6 mmol/L (3.5-5.1); SODIUM 141 mmol/L (136-145)
[2021-03-23 22:43] LABS: ALANINE AMINOTRANSFERASE < 6 IU/L (0-55)
[2021-03-23 22:44] LABS: GLUCOSE 541 mg/dL (74-118)
[2021-03-24] VITALS (12 sets, daily range): BP systolic 87–204; BP diastolic 47–110
[2021-03-24 00:32] LABS: ABG PCO2 45 mmHg (35-45); ABG PH 7.28 (7.35-7.45)
[2021-03-24 00:33] LABS: ABG HCO3 21 mmol/L (22-26); ABG PO2 122 mmHg (80-105); ABG TCO2 23
[2021-03-24] MEDS ORDERED: FUROSEMIDE INJ 10 MG/ML 4 ML VIAL IV ONE (01:15)
[2021-03-24] MEDS ORDERED: LORAZEPAM INJ 2 MG/ML VIAL ONE (03:32)
[2021-03-24] MEDS ORDERED: LORAZEPAM INJ 2 MG/ML VIAL IV ONE ×2 (04:15→07:00)
[2021-03-24] MEDS ORDERED: DEXTROSE 50% SYRINGE 50 ML IV PRN ×2 (04:45→07:00)
[2021-03-24] MEDS: HALOPERIDOL LACTATE 5 MG/ML VIAL IM PRN ×2 (05:10→06:55)
[2021-03-24] MEDS ORDERED: HALOPERIDOL LACTATE 5 MG/ML VIAL ONE (05:15)
[2021-03-24] MEDS ORDERED: HYDRALAZINE HCL 20 MG/ML VIAL ONE (05:29)
[2021-03-24] MEDS ORDERED: HYDRALAZINE HCL 20 MG/ML VIAL IV ONE (06:00)
[2021-03-24] MEDS ORDERED: DIPHENHYDRAMINE HCL INJ 50 MG/ML VIAL IV ONE (06:30)
[2021-03-24] MEDS ORDERED: ZIPRASIDONE 20 MG VIAL IM STA (06:55)
[2021-03-24] MEDS ORDERED: ZIPRASIDONE 20 MG VIAL IM ONE (06:56)
[2021-03-24] MEDS ORDERED: POLYETHYLENE GLYCOL 3350 17 GM PACK PO PRN (07:00)
[2021-03-24] MEDS ORDERED: BENZONATATE 100 MG CAP PO PRN (07:00)
[2021-03-24] MEDS ORDERED: MELATONIN 5 MG TABLET PO PRN (07:00)
[2021-03-24] MEDS ORDERED: POTASSIUM CHLORIDE 20 MEQ TAB CR PO PRN (07:00)
[2021-03-24] MEDS ORDERED: SIMETHICONE 80 MG CHEW PO PRN (07:00)
[2021-03-24] MEDS ORDERED: ACETAMINOPHEN 325 MG TAB PO PRN (07:00)
[2021-03-24] MEDS ORDERED: HYDRALAZINE HCL 20 MG/ML VIAL IV PRN (07:00)
[2021-03-24] MEDS ORDERED: DOCUSATE SODIUM 100 MG CAP PO PRN (07:00)
[2021-03-24] MEDS ORDERED: LIDOCAINE 4% PATCH TP PRN (07:00)
[2021-03-24] MEDS: PANTOPRAZOLE SOD 40 MG TABEC PO SCH (07:30)
[2021-03-24 09:27] LABS: CLARITY,URINE CLOUDY (CLEAR); COLOR,URINE YELLOW (YELLOW); KETONES,URINE NEGATIVE (NEGATIVE); LEUKOCYTE ESTERASE ,URINE TRACE (NEGATIVE); NITRITE,URINE NEGATIVE (NEGATIVE); PROTEIN,URINE DIPSTICK NEGATIVE (NEGATIVE); URINE UROBILINOGEN 0.2 mg/dL (0.2 - 1)
[2021-03-24 09:28] LABS: AMPHETAMINES SCREEN,URINE NEGATIVE (NEGATIVE); BENZODIAZEPINES SCREEN,URINE POSITIVE (NEGATIVE); PHENCYCLIDINE SCREEN,URINE NEGATIVE (NEGATIVE)
[2021-03-24 09:41] LABS: BACTERIA,URINE MANY /HPF; EPITHELIAL CELLS,URINE FEW /LPF; RBC,URINE >50 /HPF (0-5); WBC,URINE (MAN) >50 /HPF (0-5)
[2021-03-24] MEDS ORDERED: TIZANIDINE HCL4 MG PO (11:20)
[2021-03-24] MEDS ORDERED: LOSARTAN POTASS50 MG PO (11:20)
[2021-03-24] MEDS ORDERED: FUROSEMIDE20 MG PO (11:20)
[2021-03-24] MEDS ORDERED: DIAZEPAM5 MG PO (11:20)
[2021-03-24] MEDS ORDERED: DICLOFENAC SODI75 MG PO (11:20)
[2021-03-24] MEDS ORDERED: HUMALOG JU100 UNIT/1 (11:20)
[2021-03-24] MEDS ORDERED: ATORVASTATIN CA40 MG PO (11:20)
[2021-03-24] MEDS ORDERED: LEVEMIR FL100 UNIT/1 (11:20)
[2021-03-24] MEDS ORDERED: LINZESS72 MCG PO (11:20)
[2021-03-24] MEDS ORDERED: CARVEDILOL25 MG PO (11:20)
[2021-03-24] MEDS ORDERED: PANTOPRAZOLE SO40 MG PO (11:20)
[2021-03-24] MEDS ORDERED: HYDROXYZINE HCL25 MG PO (11:20)
[2021-03-24] MEDS ORDERED: CLOPIDOGREL75 MG PO (11:20)
[2021-03-24] MEDS: MEROPENEM 500MG/ NS 50ML 50 ML IV SCH ×2 (14:00→22:24)
[2021-03-24] MEDS: DEXTROSE 5%/0.9% SOD CHL 1,000 ML IV SCH (14:00)
[2021-03-24] MEDS ORDERED: CARVEDILOL 12.5 MG TAB PO SCH (17:00)
[2021-03-24] MEDS: HYDROXYZINE HCL 25 MG TAB PO SCH (17:00)
[2021-03-24] MEDS ORDERED: SODIUM CHLORIDE 0.9% 1000ML 500 ML IV SCH (18:15)
[2021-03-24] MEDS ORDERED: SODIUM CHLORIDE 0.9% 250ML 500 ML ONE (18:24)
[2021-03-24] MEDS: ATORVASTATIN 40 MG TAB PO SCH (21:00)
[2021-03-25] VITALS (8 sets, daily range): BP systolic 107–177; BP diastolic 56–98
[2021-03-25] MEDS: DEXTROSE 5%/0.9% SOD CHL 1,000 ML IV SCH ×2 (05:46→15:40)
[2021-03-25] MEDS: MEROPENEM 500MG/ NS 50ML 50 ML IV SCH ×3 (05:53→22:03)
[2021-03-25] MEDS: PANTOPRAZOLE SOD 40 MG TABEC PO SCH ×2 (07:30)
[2021-03-25 07:34] LABS: BASOPHILS # (AUTO) 0.1 (0.0-0.1); BASOPHILS % 0.3 % (0.0-1.0); EOSINOPHILS % 0.2 % (0.0-6.0); HEMATOCRIT 31.7 % (34.2-44.1); HEMOGLOBIN 9.8 g/dL (12.0-16.0); LYMPHOCYTES # (AUTO) 0.6 (1.0-3.2); LYMPHOCYTES % 3.5 % (18.0-39.1); MEAN CORPUSCULAR HEMOGLOBIN 28.2 pg (28-32); MEAN CORPUSCULAR HGB CONC 30.9 g/dL (31-35); MEAN CORPUSCULAR VOLUME 91.1 fL (81-99); MONOCYTES # (AUTO) 0.7 (0.2-0.8); NEUTROPHILS # (AUTO) 16.1 (2.1-6.9); NEUTROPHILS % 91.5 % (38.7-80.0); PLATELET COUNT 184 x10e3/uL (140-360); RED BLOOD COUNT 3.48 x10e6/uL (3.6-5.1); RED CELL DISTRIBUTION WIDTH 14.4 % (11.7-14.4)
[2021-03-25 08:01] LABS: ALBUMIN 2.9 g/dL (3.5-5.0); ALBUMIN/GLOBULIN RATIO 0.9 (0.8-2.0); ANION GAP 14.8 mmol/L (8-16); CALCIUM 7.8 mg/dL (8.4-10.2); POTASSIUM 4.8 mmol/L (3.5-5.1)
[2021-03-25 08:23] LABS: CHOL/HDL RATIO 6.1 (3.0-3.6)
[2021-03-25 08:51] LABS: BAND NEUTROPHILS % (MANUAL) 1 %; EOSINOPHILS % (MANUAL) 3 % (0-7); LYMPHOCYTES % (MANUAL) 9 % (19-48); MONOCYTES % (MANUAL) 9 % (3.4-9.0); NEUTROPHILS % (MANUAL) 78 % (40-74); PLATELET ESTIMATE ADEQUATE; PLATELET MORPHOLOGY COMMENT NORMAL; RBC MORPHOLOGY COMMENT NORMAL
[2021-03-25] MEDS: HYDROXYZINE HCL 25 MG TAB PO SCH ×2 (09:00→17:00)
[2021-03-25] MEDS ORDERED: MAGNESIUM SULFATE 2GM/50ML 50 ML IV ONE (09:00)
[2021-03-25 16:22] LABS: HEMATOCRIT 31.3 % (34.2-44.1); HEMOGLOBIN 9.5 g/dL (12.0-16.0); LYMPHOCYTES % 6.7 % (18.0-39.1); MEAN CORPUSCULAR HEMOGLOBIN 28.2 pg (28-32); MEAN CORPUSCULAR HGB CONC 30.4 g/dL (31-35); MEAN CORPUSCULAR VOLUME 92.9 fL (81-99); NEUTROPHILS % 85.5 % (38.7-80.0); PLATELET COUNT 184 x10e3/uL (140-360); RED BLOOD COUNT 3.37 x10e6/uL (3.6-5.1); RED CELL DISTRIBUTION WIDTH 14.5 % (11.7-14.4)
[2021-03-25 16:23] LABS: BASOPHILS # (AUTO) 0.1 (0.0-0.1); BASOPHILS % 0.5 % (0.0-1.0); EOSINOPHILS # (AUTO) 0.1 (0.0-0.4); EOSINOPHILS % 0.8 % (0.0-6.0); LYMPHOCYTES # (AUTO) 1.1 (1.0-3.2); MONOCYTES # (AUTO) 0.9 (0.2-0.8); NEUTROPHILS # (AUTO) 13.3 (2.1-6.9)
[2021-03-25] MEDS: CLOPIDOGREL BISULFATE 75 MG TAB PO SCH (20:05)
[2021-03-25] MEDS: ATORVASTATIN 40 MG TAB PO SCH (20:05)
[2021-03-26] VITALS (8 sets, daily range): BP systolic 98–140; BP diastolic 50–78
[2021-03-26] MEDS: MEROPENEM 500MG/ NS 50ML 50 ML IV SCH ×3 (05:27→21:42)
[2021-03-26] MEDS: PANTOPRAZOLE SOD 40 MG TABEC PO SCH ×2 (07:30→08:09)
[2021-03-26] MEDS: HYDROXYZINE HCL 25 MG TAB PO SCH ×3 (08:09→17:15)
[2021-03-26] MEDS: CLOPIDOGREL BISULFATE 75 MG TAB PO SCH (08:09)
[2021-03-26 16:34] LABS: BASOPHILS % 0.5 % (0.0-1.0); EOSINOPHILS # (AUTO) 0.4 (0.0-0.4); EOSINOPHILS % 4.3 % (0.0-6.0); HEMATOCRIT 28.6 % (34.2-44.1); HEMOGLOBIN 8.4 g/dL (12.0-16.0); LYMPHOCYTES # (AUTO) 1.1 (1.0-3.2); LYMPHOCYTES % 11.9 % (18.0-39.1); MEAN CORPUSCULAR HEMOGLOBIN 28.1 pg (28-32); MEAN CORPUSCULAR HGB CONC 29.4 g/dL (31-35); MEAN CORPUSCULAR VOLUME 95.7 fL (81-99); MONOCYTES # (AUTO) 0.6 (0.2-0.8); MONOCYTES % 6.4 % (4.4-11.3); NEUTROPHILS # (AUTO) 6.8 (2.1-6.9); NEUTROPHILS % 76.6 % (38.7-80.0); PLATELET COUNT 142 x10e3/uL (140-360); RED BLOOD COUNT 2.99 x10e6/uL (3.6-5.1); RED CELL DISTRIBUTION WIDTH 14.6 % (11.7-14.4)
[2021-03-26 16:56] LABS: ANION GAP 15.9 mmol/L (8-16); CALCIUM 8.8 mg/dL (8.4-10.2); CREATININE, SERUM 2.85 mg/dL (0.57-1.11); POTASSIUM 4.9 mmol/L (3.5-5.1)
[2021-03-26] MEDS: ATORVASTATIN 40 MG TAB PO SCH (21:42)
[2021-03-27] VITALS (8 sets, daily range): BP systolic 85–131; BP diastolic 34–87
[2021-03-27] MEDS: MEROPENEM 500MG/ NS 50ML 50 ML IV SCH (06:06)
[2021-03-27] MEDS: PANTOPRAZOLE SOD 40 MG TABEC PO SCH (08:13)
[2021-03-27] MEDS: CLOPIDOGREL BISULFATE 75 MG TAB PO SCH (08:13)
[2021-03-27] MEDS: HYDROXYZINE HCL 25 MG TAB PO SCH ×2 (08:13→17:50)
[2021-03-27] MEDS ORDERED: MEROPENEM 500MG/ NS 50ML 50 ML IV SCH (09:15)
[2021-03-27] MEDS ORDERED: LORAZEPAM INJ 2 MG/ML VIAL IV ONE (10:30)
[2021-03-27] MEDS ORDERED: DEXTROSE 50% SYRINGE 50 ML IV PRN ×2 (11:30→20:00)
[2021-03-27] MEDS: SITAGLIPTIN 100 MG TAB PO SCH (11:30)
[2021-03-27] MEDS ORDERED: QUETIAPINE FUMARATE 25 MG TAB PO SCH (17:00)
[2021-03-27] MEDS: QUETIAPINE FUMARATE 25 MG TAB PO SCH (17:50)
[2021-03-27 18:49] LABS: BASOPHILS # (AUTO) 0.1 (0.0-0.1); BASOPHILS % 0.7 % (0.0-1.0); EOSINOPHILS # (AUTO) 0.5 (0.0-0.4); EOSINOPHILS % 6.3 % (0.0-6.0); HEMATOCRIT 30.9 % (34.2-44.1); LYMPHOCYTES # (AUTO) 1.4 (1.0-3.2); LYMPHOCYTES % 16.6 % (18.0-39.1); MEAN CORPUSCULAR HEMOGLOBIN 27.8 pg (28-32); MEAN CORPUSCULAR HGB CONC 29.1 g/dL (31-35); MEAN CORPUSCULAR VOLUME 95.4 fL (81-99); MONOCYTES # (AUTO) 0.8 (0.2-0.8); NEUTROPHILS # (AUTO) 5.7 (2.1-6.9); NEUTROPHILS % 66.9 % (38.7-80.0); PLATELET COUNT 179 x10e3/uL (140-360); RED BLOOD COUNT 3.24 x10e6/uL (3.6-5.1); RED CELL DISTRIBUTION WIDTH 14.4 % (11.7-14.4)
[2021-03-27 19:13] LABS: ANION GAP 18.1 mmol/L (8-16); CALCIUM 9.3 mg/dL (8.4-10.2); CREATININE, SERUM 3.18 mg/dL (0.57-1.11); MAGNESIUM 1.9 MG/DL (1.3-2.1); PHOSPHORUS 3.3 MG/DL (2.3-4.7); POTASSIUM 5.1 mmol/L (3.5-5.1)
[2021-03-27] MEDS ORDERED: INSULIN LISPRO 100 UNIT/1 ML 3ML VIAL SQ STA (19:57)
[2021-03-27] MEDS: ATORVASTATIN 40 MG TAB PO SCH (20:45)
[2021-03-28] VITALS (7 sets, daily range): BP systolic 108–135; BP diastolic 48–94
[2021-03-28 05:46] LABS: BASOPHILS # (AUTO) 0.1 (0.0-0.1); BASOPHILS % 0.8 % (0.0-1.0); EOSINOPHILS # (AUTO) 0.6 (0.0-0.4); EOSINOPHILS % 6.6 % (0.0-6.0); HEMATOCRIT 31.8 % (34.2-44.1); HEMOGLOBIN 9.4 g/dL (12.0-16.0); LYMPHOCYTES # (AUTO) 2.3 (1.0-3.2); LYMPHOCYTES % 27.5 % (18.0-39.1); MEAN CORPUSCULAR HEMOGLOBIN 27.8 pg (28-32); MEAN CORPUSCULAR HGB CONC 29.6 g/dL (31-35); MEAN CORPUSCULAR VOLUME 94.1 fL (81-99); MONOCYTES # (AUTO) 0.9 (0.2-0.8); MONOCYTES % 11.3 % (4.4-11.3); NEUTROPHILS # (AUTO) 4.4 (2.1-6.9); NEUTROPHILS % 53.6 % (38.7-80.0); PLATELET COUNT 166 x10e3/uL (140-360); RED BLOOD COUNT 3.38 x10e6/uL (3.6-5.1); RED CELL DISTRIBUTION WIDTH 14.5 % (11.7-14.4)
[2021-03-28 06:22] LABS: ANION GAP 16.6 mmol/L (8-16); CALCIUM 9.2 mg/dL (8.4-10.2); CREATININE, SERUM 3.12 mg/dL (0.57-1.11); POTASSIUM 5.6 mmol/L (3.5-5.1)
[2021-03-28] MEDS ORDERED: SODIUM CHLORIDE 0.9% 250ML 250 ML ONE (06:33)
[2021-03-28] MEDS: MEROPENEM 500MG/ NS 50ML 50 ML IV SCH (06:36)
[2021-03-28] MEDS: INSULIN LISPRO 100 UNIT/1 ML 3ML VIAL SQ SCH ×4 (07:30→21:00)
[2021-03-28 08:42] LABS: EOSINOPHILS % (MANUAL) 1 % (0-7); LYMPHOCYTES % (MANUAL) 45 % (19-48); METAMYELOCYTES % (MANUAL) 4 % (0-0); MONOCYTES % (MANUAL) 2 % (3.4-9.0); NEUTROPHILS % (MANUAL) 48 % (40-74)
[2021-03-28 08:43] LABS: HYPOCHROMASIA SLIGHT; MICROCYTOSIS SLIG; PLATELET ESTIMATE ADEQUATE; PLATELET MORPHOLOGY COMMENT NORMAL; POIKILOCYTOSIS SLIGHT; RBC MORPHOLOGY COMMENT NORMAL; SCHISTOCYTES FEW
[2021-03-28 08:44] LABS: ANISOCYTOSIS SLIG
[2021-03-28] MEDS: CLOPIDOGREL BISULFATE 75 MG TAB PO SCH (09:09)
[2021-03-28] MEDS: QUETIAPINE FUMARATE 25 MG TAB PO SCH (09:09)
[2021-03-28] MEDS: PANTOPRAZOLE SOD 40 MG TABEC PO SCH (09:09)
[2021-03-28] MEDS: HYDROXYZINE HCL 25 MG TAB PO SCH ×2 (09:09→17:02)
[2021-03-28] MEDS: SITAGLIPTIN 100 MG TAB PO SCH (09:09)
[2021-03-28] MEDS ORDERED: SOD POLYSTYRENE SULFONATE SUSP 15 GM/60 ML BTL PO ONE (12:30)
[2021-03-28] MEDS ORDERED: SODIUM CHLORIDE 0.9% 1000ML 1,000 ML IV ONE (12:30)
[2021-03-28] MEDS ORDERED: FUROSEMIDE INJ 10 MG/ML 4 ML VIAL IV ONE (12:30)
[2021-03-28] MEDS: SODIUM BICARBONATE 650 MG TAB PO SCH ×2 (13:12→17:02)
[2021-03-28] MEDS ORDERED: FUROSEMIDE INJ 10 MG/ML 2 ML VIAL IV ONE (18:35)
[2021-03-28] MEDS: ATORVASTATIN 40 MG TAB PO SCH (21:36)
[2021-03-29] VITALS (9 sets, daily range): BP systolic 108–148; BP diastolic 77–101
[2021-03-29] MEDS ORDERED: SODIUM CHLORIDE 0.9% 250ML 250 ML ONE (05:21)
[2021-03-29] MEDS: DIPHENHYDRAMINE HCL 25 MG CAP PO PRN ×2 (05:44→21:05)
[2021-03-29] MEDS: MEROPENEM 500MG/ NS 50ML 50 ML IV SCH (05:44)
[2021-03-29 06:15] LABS: BASOPHILS # (AUTO) 0.1 (0.0-0.1); BASOPHILS % 0.9 % (0.0-1.0); EOSINOPHILS # (AUTO) 0.6 (0.0-0.4); EOSINOPHILS % 7.4 % (0.0-6.0); HEMATOCRIT 33.7 % (34.2-44.1); HEMOGLOBIN 9.9 g/dL (12.0-16.0); LYMPHOCYTES # (AUTO) 2.1 (1.0-3.2); LYMPHOCYTES % 26.4 % (18.0-39.1); MEAN CORPUSCULAR HEMOGLOBIN 27.7 pg (28-32); MEAN CORPUSCULAR HGB CONC 29.4 g/dL (31-35); MEAN CORPUSCULAR VOLUME 94.1 fL (81-99); MONOCYTES # (AUTO) 0.6 (0.2-0.8); MONOCYTES % 7.3 % (4.4-11.3); NEUTROPHILS # (AUTO) 4.6 (2.1-6.9); NEUTROPHILS % 57.4 % (38.7-80.0); PLATELET COUNT 194 x10e3/uL (140-360); RED BLOOD COUNT 3.58 x10e6/uL (3.6-5.1); RED CELL DISTRIBUTION WIDTH 14.1 % (11.7-14.4)
[2021-03-29 06:33] LABS: CALCIUM 8.7 mg/dL (8.4-10.2); CREATININE, SERUM 2.5 mg/dL (0.57-1.11)
[2021-03-29] MEDS: INSULIN LISPRO 100 UNIT/1 ML 3ML VIAL SQ SCH ×4 (07:30→21:00)
[2021-03-29] MEDS: CLOPIDOGREL BISULFATE 75 MG TAB PO SCH ×2 (09:00→09:06)
[2021-03-29] MEDS: SITAGLIPTIN 100 MG TAB PO SCH (09:05)
[2021-03-29] MEDS: HYDROXYZINE HCL 25 MG TAB PO SCH ×2 (09:05→17:19)
[2021-03-29] MEDS: PANTOPRAZOLE SOD 40 MG TABEC PO SCH (09:05)
[2021-03-29] MEDS: SODIUM BICARBONATE 650 MG TAB PO SCH ×2 (09:06→17:19)
[2021-03-29] MEDS: QUETIAPINE FUMARATE 25 MG TAB PO SCH (09:06)
[2021-03-29 10:57] LABS: EOSINOPHILS % (MANUAL) 5 % (0-7); LYMPHOCYTES % (MANUAL) 25 % (19-48); MONOCYTES % (MANUAL) 7 % (3.4-9.0); NEUTROPHILS % (MANUAL) 61 % (40-74)
[2021-03-29 10:58] LABS: HYPOCHROMASIA SLIGHT; PLATELET ESTIMATE ADEQUATE; PLATELET MORPHOLOGY COMMENT NORMAL
[2021-03-29] MEDS ORDERED: SODIUM CHLORIDE 0.9% 1000ML 1,000 ML IV SCH (12:30)
[2021-03-29] MEDS: ATORVASTATIN 40 MG TAB PO SCH (21:04)
[2021-03-30] VITALS (7 sets, daily range): BP systolic 104–160; BP diastolic 64–107
[2021-03-30] MEDS: MEROPENEM 500MG/ NS 50ML 50 ML IV SCH (05:53)
[2021-03-30] MEDS: INSULIN LISPRO 100 UNIT/1 ML 3ML VIAL SQ SCH ×2 (07:30→12:30)
[2021-03-30] MEDS ORDERED: LIDOCAINE HCL 1% LOCAL INJ 20 ML VIAL ONE (07:58)
[2021-03-30] MEDS ORDERED: SODIUM CHLORIDE 0.9% 250ML 250 ML ONE (07:59)
[2021-03-30] MEDS ORDERED: FENTANYL CITRATE/PF 100MCG/2 ML INJ ONE (08:48)
[2021-03-30] MEDS: SODIUM BICARBONATE 650 MG TAB PO SCH (09:25)
[2021-03-30] MEDS: QUETIAPINE FUMARATE 25 MG TAB PO SCH (09:25)
[2021-03-30] MEDS: SITAGLIPTIN 100 MG TAB PO SCH (09:25)
[2021-03-30] MEDS: HYDROXYZINE HCL 25 MG TAB PO SCH (09:25)
[2021-03-30] MEDS: PANTOPRAZOLE SOD 40 MG TABEC PO SCH (09:25)
== END 2021-03-30 16:14 | DRG 871 ==
LOC: ER 21:51 → ERHOLD 03-24 02:52 → IMCU 03-24 11:35 → MED/SURG3 03-27 13:35
PROVIDERS: ADMIT Internal Medicine; ATTEND Internal Medicine
PROC: 0JH63XZ Insertion of Tunneled Vascular Access Device into Chest Subcutaneous Tissue and Fascia, Percutaneous Approach (ICD-10-PCS; principal; 2021-03-30)
PROC: 06H033Z Insertion of Infusion Device into Inferior Vena Cava, Percutaneous Approach (ICD-10-PCS; 2021-03-30)
PROC: B549ZZA Ultrasonography of Inferior Vena Cava, Guidance (ICD-10-PCS; 2021-03-30)
DX: A41.9 Sepsis, unspecified organism (principal); G93.41 Metabolic encephalopathy; N39.0 Urinary tract infection, site not specified; N18.5 Chronic kidney disease, stage 5; Z16.12 Extended spectrum beta lactamase (ESBL) resistance; I12.0 Hypertensive chronic kidney disease with stage 5 chronic kidney disease or end stage renal disease; E11.22 Type 2 diabetes mellitus with diabetic chronic kidney disease; E11.649 Type 2 diabetes mellitus with hypoglycemia without coma; F03.90 Unspecified dementia, unspecified severity, without behavioral disturbance, psychotic disturbance, mood disturbance, and anxiety; B96.20 Unspecified Escherichia coli [E. coli] as the cause of diseases classified elsewhere; H91.90 Unspecified hearing loss, unspecified ear; Z95.5 Presence of coronary angioplasty implant and graft; I25.10 Atherosclerotic heart disease of native coronary artery without angina pectoris; Z20.822 Contact with and (suspected) exposure to COVID-19; H54.8 Legal blindness, as defined in USA; T38.3X1A Poisoning by insulin and oral hypoglycemic [antidiabetic] drugs, accidental (unintentional), initial encounter; Y92.019 Unspecified place in single-family (private) house as the place of occurrence of the external cause; Z79.4 Long term (current) use of insulin
CPT/HCPCS: 36415; 36558; 36600; 70450; 71045; 74470; 76937; 77001; 80048; 80053; 80061; 80307; 81001; 82140; 82550; 82553; 82805; 82948; 83036; 83735; 83880; 84100; 84132; 84146; 84443; 84484; 85025; 87086; 87186; 93005; 95812; 96372; 97139; 99285; C1769; J0360; J1200; J1630; J1940; J2001; J2060; J3010; J3410; J3475; J3486; J7030; J7042; J7050; J7070; J7799; U0002